=== PATIENT | male | born 1970 | race Caucasian/White ===

== ENCOUNTER → 2018-06-19 | Outpatient (CLI) | payer OTHER ==
--- NOTE | 2018-06-19 17:37 | CONS ---
CONSULTATION DATE OF SERVICE: 06/19/2018 A 48-year-old gentleman who [facility] problems related to difficulties to initiate sleep and multiple awakenings from sleep. HISTORY OF PRESENT ILLNESS/SLEEP-WAKE EVALUATION: Patient's usual sleep schedule from midnight until 5 am and he gets out of bed around 6 a.m. Sometimes has problem with falling asleep for more than 30 minutes, but not more than 1 hour. He does have TV set in bedroom. He sleeps on the side position. He wakes up from sleep about 3 times with up to 2 episodes of nocturia and sometimes has difficulties to fall asleep again. He may have dry mouth during the night and possibly he opens his mouth during the sleep. He has episodes of panic attack, restless legs, sweating at night. In the morning he wakes up tired, has difficulties to pay attention, worry about his sleep, has problem with the memory, stability, depression and anxiety. [place] Sleepiness Scale is 5. PAST MEDICAL HISTORY: Positive for some changes of the mood, possibly related to his job. PAST SURGICAL HISTORY: Appendectomy. MEDICATIONS: None. SOCIAL HISTORY: Negative for smoking. Alcohol consumption rarely. FAMILY HISTORY: Arthritis, sinus headache, snoring. REVIEW OF SYSTEMS: Multiple awakenings from sleep, difficulties to reinitiate sleep. Sometimes tiredness and sleepiness during the day. PHYSICAL EXAM: gentleman without distress. BP 141/67, HR 61, RR 12, height 68, weight 173.0, BMI 26.3, temperature 98.0, oxygen saturation at room air 97%/ OROPHARYNX: Moderately low position of soft palate, uvula, slight restriction of nasal breathing bilaterally. Neck Supple, no JVD. Thyroid is not palpable. LUNGS Clear to percussion and to auscultation. Good air exchange. No wheezing or rhonchi. HEART S1, S2 regular. No murmurs, gallops, or rubs. ABDOMEN Soft and nontender. Bowel sounds are present. No organomegaly appreciated. EXTREMITIES No clubbing or cyanosis. ACADEMIC ADMINISTRATOR Awake, alert, and oriented X3. Cranial nerves 2 to 7 intact. There is no fasciculation or atrophy. noted. No focal deficits observed. IMPRESSION: 1. Multiple awakenings from sleep with sometimes difficulty to reinitiate sleep. Moderately low position of soft palate, big uvula with restriction of nasal breathing, possible obstructive sleep apnea-hypopnea syndrome. 2. Some restriction of nasal breathing. 3. History of episodes of panic attack during the sleep. 4. Episodes of restless legs. PLAN: 1. Polysomnography for evaluation of patient's breathing during sleep. 2. CPAP/BiPAP titration if sleep study confirms obstructive sleep apnea-hypopnea syndrome. 3. Preferable position during sleep on the side. 4. No driving if patient feels any sleepiness. 5. I will see patient for follow up visit to explain results of testing and following plan. Thank you very much for referring this patient for consultation. Sincerely, Jaden Ortega MD, PhD, FAASM Diplomat of [employer] [employer] [facility] [place] MMODL / IJN: [id number] /
== END | disposition home or self-care (01) ==
LOC: SLEEP 12:58
PROVIDERS: ATTEND Internal Medicine
DX: G47.9 Sleep disorder, unspecified (principal); G47.30 Sleep apnea, unspecified; F41.0 Panic disorder [episodic paroxysmal anxiety]; G25.81 Restless legs syndrome
CPT/HCPCS: 99211

== ENCOUNTER → 2023-08-21 | Outpatient (CLI) | payer OTHER ==
--- NOTE | 2023-08-21 12:29 | NM ---
EXAMINATION TYPE: NM stress cardiolite complete DATE OF EXAM: 08/21/2023 COMPARISON: NONE CLINICAL INDICATION: Male, 53 years old with history of R07.9 CHEST PAIN; TECHNIQUE: After the intravenous administration of 9.37 mCi Tc 99m Sestamibi - Rest images obtained 45 minutes post injection. The patient exercised using a BLAKE protocol and 1 minute prior to peak exercise was injected with 25.8 mCi Tc 99m Sestamibi - Stress images obtained 40 minutes post injecti on. FINDINGS: Targeted heart rate was achieved during performance of the study. Review of stress and rest SPECT mansi ges demonstrates no distinct perfusion abnormality. Gated analysis shows normal wall motion with an estimated left ventricular ejection fraction of 54 %. IMPRESSION: No scintigraphic evidence for reversible ischemia
--- NOTE | 2023-08-21 12:36 | CA ---
Exercise Nuclear Stress Test Report Name: Misael Hernández Exam Date: 08/21/2023 09:23 Exam Location: [place] Stress Ht (in): 68 Wt (lb): 173 BSA: 1.92 Ordering Phys: Kindra Palacio DO Referring Phys: Shanthi Mosquera PAC Technologist: Levi Vann Age: 53 Gender: M : 1970 Procedure CPT: Indications: R07.9 CHEST PAIN ICD-10 Codes: Patient History: Medications: NONE Meds past 24 hrs: Pretest Chest Pain: STRESS TEST Corey Protocol Exercise Duration (min:sec): 18:[address] Depressions (mm): Angina Score: Fountain Score: Resting HR (bpm): 64 Peak HR (bpm): 149 Resting BP (mmHg): 110 / 72 Peak BP (mmHg): 167 / 75 MPHR: 167 Target HR: 142 % MPHR: 89 METS: 17.9 Total Dose: Peak Dose: Atropine: Double Product: 65085 BP Response: Stress Termination: Reached target heart rate Stress Symptoms: No chest pain or symptoms Stress Summary: ECG ANALYSIS Resting ECG: Stress ECG: CONCLUSIONS Patient underwent exercise stress Cardiolite with a Corey protocol treadmill stress test. Patient exercised into Stage 6 for a total of 18 minutes and 30 seconds reaching a total of 17.9 METS. Patient's maximum heart rate was 149 which represented 89% age-predicted maximum heart rate. Stress EKG findings: At baseline patient's EKG showed sinus bradycardia with heart rate 49 bpm, minimal J-point elevation, no significant ST or T wave abnormalities. At peak exercise, EKG showed no significant change from baseline. Conclusions: 1. Normal EKG response to exercise without evidence of inducible ischemia. 2. Excellent exercise capacity. 3. Nuclear portion to be reported separately Dr. Darryn Crandall DO (Electronically Signed) Final Date: 21 August 2023 12:35
== END | disposition home or self-care (01) ==
LOC: RADNMMAIN 07:58
PROVIDERS: ATTEND Family Medicine
DX: R07.9 Chest pain, unspecified (principal); I20.8 Other forms of angina pectoris
CPT/HCPCS: 93017; 78452; A9500